=== PATIENT | female | born 1990 | race Caucasian/White ===

== ENCOUNTER 2019-11-08 09:03 | Emergency (ER) | payer MEDICAID ==
[~2019-11-08] VITALS: Ht 172.7 cm; Wt 81.6 kg
--- NOTE | 2019-11-08 09:03 | NUR ---
Patient BIBA BLS, transferred to bed 4. RN evaluating patient at bedside.
[2019-11-08 09:05] VITALS: BP 129/63
--- NOTE | 2019-11-08 09:12 | NUR ---
c/o pain swelling to right knee s/p squat down to pick object from floor when hear multiple cracking sounds and loss to bear weight onto rle----
--- NOTE | 2019-11-08 09:13 | NUR ---
X RAY AT BEDSIDE.
--- NOTE | 2019-11-08 10:29 | NUR ---
Dr. Naranjo is evaluating the patient at bedside.
[2019-11-08] MEDS ORDERED: HYDROcodone/APAP 5/325 MG 1 TAB TAB PO ONE (10:55)
--- NOTE | 2019-11-08 11:35 | NUR ---
APPLIED KNEE IMMOBILIZER TO RIGHT KNEE WITHOUT ANY ISSUES. PT DEMONSTRATED PROPER USE OF CRUTCHES
[2019-11-08 11:47] VITALS: BP 119/84
--- NOTE | 2019-11-08 11:48 | NUR ---
Patient discharged with v/s stable. Written and verbal after care instructions given and explained. Patient alert, oriented and verbalized understanding of instructions. Ambulatory with steady gait. All questions addressed prior to discharge. ID band removed. Patient advised to follow up with PMD. Rx of NORCO/IBUPROFEN given. Patient educated on indication of medication including possible reaction and side effects. Opportunity to ask questions provided and answered.
== END 2019-11-08 11:48 | disposition home or self-care (01) ==
LOC: MED 09:03
DX: S83.91XA Sprain of unspecified site of right knee, initial encounter (principal); X58.XXXA Exposure to other specified factors, initial encounter; Y93.89 Activity, other specified; Y92.89 Other specified places as the place of occurrence of the external cause; Y99.8 Other external cause status
CPT/HCPCS: 73564; 99283; Q0092